=== PATIENT | female | born 1965 | race Caucasian/White ===

== ENCOUNTER 2018-05-11 09:05 | Day surgery (SDC) | payer BC ==
[~2018-05-11 09:05] MED LIST: Lactated Ringers 1,000 ML IV SCH; Lidocaine 1%/Sod Bicarbonate in NS 8.4% 1 ML Syringe IDERM PRN; Sodium Chloride 0.9% 10 ML Syringe FLUSH PRN
[2018-05-11] MEDS ORDERED: Midazolam 1 MG/ML 2 ML SDV ONE (09:51)
[2018-05-11] MEDS ORDERED: Ketamine 500 mg/10 ML MDV ONE (09:51)
[2018-05-11] MEDS ORDERED: fentaNYL 100 MCG/2 ML SDV ONE (09:51)
[2018-05-11] MEDS ORDERED: Propofol 200 MG/20 ML SDV ONE (09:51)
[2018-05-11] MEDS ORDERED: Dexamethasone 4 MG/ML 5 ML MDV ONE (09:54)
[2018-05-11] MEDS ORDERED: Lidocaine 1% 4 ML ONE (09:54)
[2018-05-11] MEDS ORDERED: Ondansetron 4 MG/2 ML SDV ONE (09:54)
[2018-05-11] MEDS ORDERED: Ketorolac 30 MG/ML SDV ONE (09:54)
--- NOTE | 2018-05-11 10:10 | PCM.PREANE ---
Preanesthetic Assessment - Procedure Proposed Procedure: Endometrial ablation, hysteroscopy, novasure - Anesthesia/Transfusion/Family Hx Anesthesia History: No Prior Anesthesia Family History of Anesthesia Reaction: No Transfusion History: No Prior Transfusion(s) - Review of Systems General: No Symptoms Pulmonary: No Symptoms Cardiovascular: No Symptoms Gastrointestinal: No Symptoms Neurological: Headache (migraines (hormone relater per patient)), Other ( restless leg syndrome ) Other: Reports: None - Physical Assessment NPO Status Date: 05/11/18 NPO Status Time: 02:00 O2 Sat by Pulse Oximetry: 100 Respiratory Rate: 16 Vital Signs: Last Vital Signs Temp 36.8 C 05/11/18 09:15 Pulse 74 05/11/18 09:15 Resp 16 05/11/18 09:15 BP 96/56 L 05/11/18 09:15 Pulse Ox 100 05/11/18 09:15 Height: 1.63 m Weight: 52.8 kg ASA Class: 2 Mental Status: Alert & Oriented x3 Airway Class: Mallampati = 2 Dentition: Reports: Normal Dentition Thyro-Mental Finger Breadths: 3 Mouth Opening Finger Breadths: 3 ROM/Head Extension: Full Lungs: Clear to Auscultation, Normal Respiratory Effort Cardiovascular: Regular Rate, Regular Rhythm - Allergies Allergies/Adverse Reactions: Allergies Allergy/AdvReac Type Severity Reaction Status Date / Time No Known Allergies Allergy Verified 05/11/18 09:53 - Blood Blood Available: No Product(s) Available: None - Anesthesia Plan Pre-Op Medication Ordered: None - Acknowledgements Anesthesia Type Planned: MAC Pt an Appropriate Candidate for the Planned Anesthesia: Yes Alternatives and Risks of Anesthesia Discussed w Pt/Guardian: Yes Pt/Guardian Understands and Agrees with Anesthesia Plan: Yes PreAnesthesia Questionnaire HEENT History: Reports: Allergic Rhinitis Cardiovascular History: Reports: None Respiratory History: Reports: None Gastrointestinal History: Reports: None Genitourinary History: Reports: Other (See Below) Other Genitourinary History: HPV, dysuria, irregular menses, frequency, vaginal itching, kidney stones, menorrhagia PIT BOSS History: Reports: , Spontaneous , Other (See Below) Other OB/BYN History: ovarian cyst Musculoskeletal History: Reports: Other (See Below) Other Musculoskeletal History: restless leg syndrome Neurological History: Reports: Migraines Psychiatric History: Reports: None Endocrine/Metabolic History: Reports: None Hematologic History: Reports: Anemia Immunologic History: Reports: None Oncologic (Cancer) History: Reports: None Dermatologic History: Reports: Other (See Below) Other Dermatologic History: actinic keratosis, actinic lentigo, rhytides - Past Surgical History Head Surgeries/Procedures: Reports: None HEENT Surgical History: Reports: Tonsillectomy Cardiovascular Surgical History: Reports: None Respiratory Surgical History: Reports: None GI Surgical History: Reports: None Female Surgical History: Reports: None Male Surgical History: Reports: None Endocrine Surgical History: Reports: None Neurological Surgical History: Reports: None Oncologic Surgical History: Reports: None - SUBSTANCE USE Smoking Status *Q: Never Smoker Second Hand Smoke Exposure: No Recreational Drug Use History: No - HOME MEDS Home Medications: Home Meds Carbidopa/Levodopa [Carbidopa-Levo 25-100 MG ODT] 1 tab PO DAILY 05/10/18 [ History] Eszopiclone 3 mg PO BEDTIME 05/10/18 [History] - CURRENT (IN HOUSE) MEDS Current Meds: Current Medications Lactated Ringer's (Ringers, Lactated) 1,000 mls @ 125 mls/hr IV ASDIRECTED EVELIO Stop: 05/11/18 23:00 Last Admin: 05/11/18 09:30 Dose: 125 mls/hr Lidocaine/Sodium Bicarbonate (Buffered Lidocaine 1% In Ns 8.4%) 0.25 ml IDERM ONETIME PRN PRN Reason: Prior to IV Start Stop: 05/11/18 18:00 Last Admin: 05/11/18 09:30 Dose: 0.25 ml Sodium Chloride (Saline Flush) 10 ml FLUSH ASDIRECTED PRN PRN Reason: Keep Vein Open Stop: 05/11/18 18:00 Discontinued Medications Dexamethasone (Dexamethasone) Confirm Administered Dose 20 mg .ROUTE .STK-MED ONE Stop: 05/11/18 09:55 Fentanyl (Sublimaze) Confirm Administered Dose 100 mcg .ROUTE .STK-MED ONE Stop: 05/11/18 09:52 Lidocaine HCl (Xylocaine-Mpf 1%) Confirm Administered Dose 4 mls @ as directed .ROUTE .STK-MED ONE Stop: 05/11/18 09:55 Ketamine HCl (Ketalar) Confirm Administered Dose 500 mg .ROUTE .STK-MED ONE Stop: 05/11/18 09:52 Ketorolac Tromethamine (Toradol) Confirm Administered Dose 30 mg .ROUTE .STK- MED ONE Stop: 05/11/18 09:55 Midazolam HCl (Versed 1 Mg/Ml) Confirm Administered Dose 2 mg .ROUTE .STK-MED ONE Stop: 05/11/18 09:52 Ondansetron HCl (Zofran) Confirm Administered Dose 4 mg .ROUTE .STK-MED ONE Stop: 05/11/18 09:55 Propofol (Diprivan 20 Ml) Confirm Administered Dose 600 mg .ROUTE .STK-MED ONE Stop: 05/11/18 09:52
[2018-05-11] MEDS ORDERED: Lactated Ringers 1,000 ML ONE (12:05)
[2018-05-11] MEDS ORDERED: Ketorolac 30 MG/ML SDV IVPUSH SCH (12:15)
--- NOTE | 2018-05-11 12:17 | PCM.OPNOTE ---
- General Post-Op/Procedure Note Date of Surgery/Procedure: 05/11/18 Operative Procedure(s): Hysteroscopy, endometrial curettage, NovaSure endometrial ablation Findings: Uterus sounded to 7 cm. Uterine cavity itself was approximately 5 cm. Uterus is posterior position. No adnexal abdomen was were palpated. There is normal support, secretions and estrogenization vagina. Cervix appeared multiparous. Pre Op Diagnosis: Menorrhagia Post-Op Diagnosis: Same Anesthesia Technique: General Mask Primary Surgeon: Beka Borges Anesthesia Provider: Leelee Turk Waistline Joiner: Jose Loya Reason Waistline Joiner Was Necessary: Assistance, retraction, patient safety, quality care Pathology: Endometrial curettings Fluid Replacement, Intraop: 1,000 EBL in mLs: 5 Complications: None Condition: Good Free Text/Narrative:: Surgery duration: 13 minutes Procedure: Patient was instructed as to procedure, its risks, benefits, limitations and follow-up and had signed a consent for surgery. The patient is taken the operative placed in a supine position on the operating table. She received 2 g of Ancef preoperatively for infection prophylaxis and had sequential compression stockings in place for DVT prophylaxis. Patient was given anesthesia for the procedure. She is placed in a dorsal lithotomy position and prepped and draped in usual fashion. An exam under anesthesia was performed. Findings as described above. A weighted speculum was placed in the vagina. Cervix is visualized. It was grasped anteriorly with a single-tooth tenaculum. Uterus was then sounded to a depth of 7 cm. The cervix was dilated to allow passage of a 5 mm 30 rigid hysteroscope. This was placed without problem and normal saline was used as a distending medium. The endometrial cavity was visualized. Findings as described above. D&C was performed and a small amount of tissue was obtained. This was sent for histologic evaluation. Minimal bleeding was encountered. NovaSure endometrial ablation was then performed. The cervix was dilated to allow placement of the NovaSure endometrial apparatus. Uterus had sounded to 7 cm and a uterine endometrial cavity was 5 cm with cervix being a length of 2 cm.. The NovaSure device was set to 5.0 centimeters. The endometrial cavity was found to be 3.0 cm in width. Uterine cavity integrity check was then performed and was successful. The endometrial cavity was then ablated. Energy was 83. The ablation took approximately 73 seconds The array was collapsed and the apparatus was removed. Hysteroscope was then placed back into the endometrial cavity. Blood was flushed out and the findings were consistent with a cauterized endometrial cavity. At this point the scope was removed. The vagina was cleared of old blood , the cervix was released and the weighted speculum was removed. Patient was returned to supine position and awakened from general anesthesia. She tolerated the procedure well and operating room in good condition.
--- NOTE | 2018-05-11 12:19 | PCM48HPAN ---
Post Anesthesia Note - EVALUATION WITHIN 48HRS OF ANESTHETIC Vital Signs in Normal Range: Yes Patient Participated in Evaluation: Yes Respiratory Function Stable: Yes Airway Patent: Yes Cardiovascular Function Stable: Yes Hydration Status Stable: Yes Pain Control Satisfactory: Yes Nausea and Vomiting Control Satisfactory: Yes Mental Status Recovered: Yes Pulse Rate: 65 SaO2: 100 Resp Rate: 12 Temperature: 36.4 C Blood Pressure: 99/56
== END 2018-05-11 13:05 | disposition home or self-care (01) ==
LOC: JD.SDS 09:05
PROVIDERS: ATTEND Obstetrics & Gynecology
DX: N71.0 Acute inflammatory disease of uterus (principal); N71.1 Chronic inflammatory disease of uterus
CPT/HCPCS: 58563; J0131; J1100; J1885; J2001; J2250; J2405; J2704; J3010; J7120; 00952

== ENCOUNTER 2020-11-30 12:05 | Emergency (ER) | payer BC | END 2020-11-30 13:20 | disposition left against medical advice (07) | LOC: JD.ED 12:05 | DX: Z53.21 Procedure and treatment not carried out due to patient leaving prior to being seen by health care provider (principal) ==

== ENCOUNTER 2024-08-22 10:23 | Emergency (ER) | payer BC ==
[2024-08-22 10:41] LABS: BASOPHILS PERCENT AUTO 0.6 % (0.0-1.0); EOSINOPHILS ABSOLUTE AUTO 0.3 K/mm3 (0.0-0.4); EOSINOPHILS PERCENT AUTO 5.4 % (0.0-6.0); HEMATOCRIT 45.9 % (37.0-47.0); HEMOGLOBIN 15.2 gm/dl (12.0-16.0); IMMATURE GRAN ABSOLUTE AUTO 0.01 K/mm3 (0.00-0.05); IMMATURE GRAN PERCENT AUTO 0.2 % (0.0-0.4); LYMPHOCYTES ABSOLUTE AUTO 1.7 K/mm3 (1.0-4.8); LYMPHOCYTES PERCENT AUTO 32.3 % (24.0-44.0); MEAN CORPUSCULAR HEMOGLOBIN 32.3 pg (28.0-32.0); MEAN CORPUSCULAR HGB CONC 33.1 g/dl (32.0-36.0); MEAN CORPUSCULAR VOLUME 97.7 fl (83.0-99.0); MEAN PLATELET VOLUME 10.7 fl (9.4-12.3); MONOCYTES ABSOLUTE AUTO 0.6 K/mm3 (0.0-0.8); MONOCYTES PERCENT AUTO 11.6 % (0.0-8.0); NEUTROPHILS ABSOLUTE AUTO 2.6 K/mm3 (1.8-7.7); NEUTROPHILS PERCENT AUTO 49.9 % (41.0-71.0); PLATELET COUNT,PLT 231 K/mm3 (150-400); WHITE BLOOD CELL COUNT,WBC 5.17 K/mm3 (3.9-11.3)
[2024-08-22 11:00] LABS: INR 0.95; PROTHROMBIN TIME 10.1 SECONDS (9.7-12.0)
[2024-08-22 11:01] LABS: PTT,PARTIAL THROMBOPLSTIN TIME 22.3 SECONDS (21.7-31.4)
[2024-08-22] MEDS: Iopamidol 755 Mg/ML 100 ML Bottle IVPUSH ONE (11:02)
[2024-08-22] MEDS: Sodium Chloride 0.9% 100 ML IV SCH (11:02)
[2024-08-22] MEDS: Sodium Chloride 0.9% 10 ML Syringe FLUSH ONE (11:02)
[2024-08-22 11:07] LABS: A/G RATIO 1.1 (1-2); ALBUMIN 4.1 g/dl (3.4-5.0); BILIRUBIN TOTAL 0.3 mg/dL (0.2-1.0); BUN/CREATININE RATIO 26.3 (14-18); CALCIUM 9.7 mg/dL (8.5-10.1); CREATININE 0.8 mg/dL (0.55-1.02); EST CRCL DRUG DOSING (CG) 66.19 mL/min; PROTEIN TOTAL,TP 7.7 g/dl (6.4-8.2)
[2024-08-22] MEDS: Sodium Chloride 0.9% 10 ML Syringe FLUSH PRN (11:45)
[2024-08-22] MEDS: Heparin Sodium 5,000 Units/ML Vial IVPUSH ONE (12:23)
[2024-08-22] MEDS: Aspirin 81 MG Tab.Chew PO ONE (12:24)
[2024-08-22] MEDS: Heparin Sodium/D5W 250 ML IV SCH (12:27)
== END 2024-08-22 12:59 ==
LOC: JD.ED 10:23
DX: I21.4 Non-ST elevation (NSTEMI) myocardial infarction (principal); Z91.030 Bee allergy status; Z91.011 Allergy to milk products; Z79.899 Other long term (current) drug therapy
CPT/HCPCS: 36415; 70450; 70496; 70498; 80053; 82947; 84484; 85025; 85610; 85730; 93005; 96365; 99285; A9270; J1644; Q9967; 93010

== ENCOUNTER 2024-12-04 20:22 | Emergency (ER) | payer BC ==
[2024-12-04 20:39] LABS: BASOPHILS ABSOLUTE AUTO 0.0 K/mm3 (0.0-0.2); BASOPHILS PERCENT AUTO 0.7 % (0.0-1.0); EOSINOPHILS ABSOLUTE AUTO 0.4 K/mm3 (0.0-0.4); EOSINOPHILS PERCENT AUTO 6.0 % (0.0-6.0); IMMATURE GRAN ABSOLUTE AUTO 0.01 K/mm3 (0.00-0.05); IMMATURE GRAN PERCENT AUTO 0.2 % (0.0-0.4); LYMPHOCYTES ABSOLUTE AUTO 2.4 K/mm3 (1.0-4.8); LYMPHOCYTES PERCENT AUTO 39.2 % (24.0-44.0); MEAN PLATELET VOLUME 10.2 fl (9.4-12.3); MONOCYTES ABSOLUTE AUTO 0.6 K/mm3 (0.0-0.8); MONOCYTES PERCENT AUTO 9.7 % (0.0-8.0); NEUTROPHILS ABSOLUTE AUTO 2.7 K/mm3 (1.8-7.7); NEUTROPHILS PERCENT AUTO 44.2 % (41.0-71.0); NRBC ABSOLUTE 0.00 (0.00-0.02); NRBC PERCENT 0.0 % (0.0-0.2); PLATELET COUNT,PLT 227 K/mm3 (150-400); RED BLOOD CELL COUNT 4.53 M/mm3 (4.10-5.30); WHITE BLOOD CELL COUNT,WBC 5.99 K/mm3 (3.9-11.3)
[2024-12-04] MEDS: Diltiazem 25 MG/5 ML SDV IV ONE (20:56)
[2024-12-04] MEDS: Sodium Chloride 0.9% 10 ML Syringe FLUSH PRN (21:09)
[2024-12-04 21:14] LABS: A/G RATIO 1.2 (1-2); ALANINE AMINOTRANSFERASE,ALT 35.0 U/L (14-59); ASPARTATE AMNIOTRANSFERASE,AST 21.0 U/L (15-37); BILIRUBIN TOTAL 0.3 mg/dL (0.2-1.0); BLOOD UREA NITROGEN,BUN 26.0 mg/dL (7-18); CARBON DIOXIDE,CO2 33.0 mEq/L (21-32); CHLORIDE,CL 105.0 mEq/L (98-107); CREATININE 0.7 mg/dL (0.55-1.02); EST CRCL DRUG DOSING (CG) 75.65 mL/min; ESTIMATED GFR 100.0 mL/min (>60); GLUCOSE RANDOM 129.0 mg/dL (70-99); PHOSPHORUS 3.2 mg/dL (2.6-4.7); POTASSIUM,K 3.2 mEq/L (3.5-5.1); PROTEIN TOTAL,TP 7.4 g/dl (6.4-8.2); SODIUM,NA 144.0 mEq/L (136-145); TSH 2.169 uIU/mL (0.358-3.74)
[2024-12-04 21:25] LABS: TROPONIN I HIGH SENSITIVITY 225.0 pg/mL (<=51)
[2024-12-04 21:40] LABS: APPEARANCE,URINE CLEAR (Clear); GLUCOSE,URINE NEGATIVE (Negative); OCCULT BLOOD,URINE NEGATIVE (Negative)
[2024-12-04] MEDS: Potassium Bicarbonate/Cit Ac 20 MEQ Effervescent Tab PO ONE (21:41)
[2024-12-04] MEDS: Heparin Sodium 5,000 Units/ML Vial IVPUSH ONE (22:38)
[2024-12-04] MEDS: Heparin Sodium/D5W 250 ML IV SCH (22:38)
== END 2024-12-04 23:33 ==
LOC: JD.ED 20:22
DX: I48.91 Unspecified atrial fibrillation (principal); I42.2 Other hypertrophic cardiomyopathy; E87.6 Hypokalemia; R79.89 Other specified abnormal findings of blood chemistry; Z86.16 Personal history of COVID-19; Z91.011 Allergy to milk products; Z91.018 Allergy to other foods; Z91.030 Bee allergy status; Z79.899 Other long term (current) drug therapy
CPT/HCPCS: 36415; 71045; 80053; 81003; 83735; 83880; 84100; 84443; 84484; 85025; 85379; 85730; 93005; 96365; 96367; 96375; 99285; A9270; J1163; J1644; J3480; J7030; 93010